=== PATIENT | male | born 1965 | race Caucasian/White ===

== ENCOUNTER 2016-10-31 13:21 | Inpatient (IN) ==
[2016-10-31] MEDS ORDERED: ZOFRAN IV PRN (14:48)
[2016-10-31] MEDS ORDERED: NUBAIN IV PRN (14:48)
[2016-10-31] MEDS: SODIUM CHLORIDE 0.9% INJ SCH (15:32)
[2016-10-31] MEDS: PROTONIX IV SCH (15:33)
[2016-10-31 15:47] LABS: MANUAL DIFF NEEDED? NO
[2016-10-31] MEDS: NS + KCL 20 MEQ 1,000 ML IV SCH (16:10)
[2016-10-31 16:16] LABS: PROTIME 10.5 Seconds (9.2-11.7); PTT 26.9 Seconds (22.0-36.0)
[2016-10-31 16:17] LABS: BASO% 0.4 % (0.0-0.8); EOS# 0.37 X1000 (0.0-0.7); EOS% 3.4 % (0.0-10.0); HEMATOCRIT 41.8 % (42.0-52.0); HEMOGLOBIN 14.2 g/dL (14.0-18.0); IMM GRAN# 0.12 X1000 (0.0-0.04); IMM GRAN% 1.1 % (0.0-0.5); LYMPH# 2.77 X1000 (1.2-3.4); LYMPH% 25.6 % (20.5-51.1); MCH 29.7 PG (27-31); MCV 87.4 FL (81-99); MONO# 0.74 X1000 (0.11-0.59); MONO% 6.8 % (1.7-9.3); MPV 12.3 FL (7.4-10.4); NEUT% 62.7 % (42.2-75.2); PLT 186 X1000 (130-400); RBC 4.78 XMIL (4.7-6.1)
[2016-10-31 16:18] LABS: AGAP 11; ALBUMIN 3.6 g/dL (3.5-5.0); ALKALINE PHOSPHATASE 65 U/L (32-122); AMYLASE 37 U/L (20-200); BUN 24 mg/dL (8-22); CALCIUM 8.5 mg/dL (8.8-10.2); CHLORIDE 102 mmol/L (98-107); COSMO 276; GOT 24 U/L (10-34); GPT 29 U/L (10-44); LIPASE 39 U/L (13-60); POTASSIUM 3.9 mmol/L (3.5-5.1); SODIUM 136 mmol/L (136-145); TCO2 23 mmol/L (25-35); TOTAL BILIRUBIN 0.23 mg/dL (0.20-1.00); TOTAL PROTEIN 7.3 g/dL (6.3-8.3)
--- NOTE | 2016-10-31 16:43 | Diag Imaging Result Doc PS360 ---
EXAM: ABDOMEN FLAT/UPRIGHT - 10/31/2016 HISTORY: abd pain TECHNIQUE: Supine and upright abdomen COMPARISON: 09/27/2015 FINDINGS: There is oral contrast on board associated with the scheduled CT abdomen and pelvis. There is gas visible in mostly nondistended colon and small bowel. There is no substantial gaseous bowel distention identified. There are multiple air-fluid levels on the upright view. There is no there is no obvious free air. IMPRESSION: Nonspecific bowel gas pattern. There are multiple air-fluid levels on the upright view, but there is no substantial gaseous bowel distention identified. Electronically signed by Haile Mazariegos 10/31/2016 4:41 PM
[2016-10-31] MEDS: ZOSYN 3.375 GM/NS 3.375 GM/50 ML IVPB IV SCH ×2 (17:59→22:40)
--- NOTE | 2016-10-31 17:59 | HISTORY AND PHYSICAL ---
CHIEF COMPLAINT: Abdominal pain. HISTORY OF PRESENT ILLNESS: A 51-year-old, white gentleman complaining of pain in the right upper quadrant and right side of the abdomen going on since Sunday. The patient had throbbing pain at times sharp pain, throbbing pain was almost constant. Sharp pain was coming and going. The patient did have mild nausea but no vomiting. The patient had a few loose bowel movements. He denied any blood or mucus in the stool. No dysuria or hematuria. At times, pain was moderate. The patient came to the office for evaluation. The patient was looking sick and I evaluated the patient. On exam patient did have tenderness in the right upper quadrant and I decided to admit the patient for further care. The patient denied any blood or mucus in the stool. The patient did have mild dysuria; no gross hematuria. The patient had history of kidney stone but he denied any renal or ureteric colic. Mild abdominal bloating and distention. No typical chest pain, palpitation, orthopnea or PND. The patient does have chronic cough with scanty sputum production. The patient does smoke. No dysphagia or odynophagia. No runny nose, stuffy nose, sinus drainage. At times, pain in the lower back. No heat or cold intolerance. The patient gained weight. No focal numbness, tingling, weakness. No further history available at this time. ALLERGIES: No known drug allergy. HOME MEDICATION: Protonix, Carafate and Cozaar. PAST MEDICAL HISTORY: Significant for metabolic syndrome, hypertension, gastritis, peripheral neuropathy, osteoarthritis. PERSONAL HISTORY: Single. He does smoke a pack every 2-3 days. Denied alcohol or substance abuse. Patient is on disability. REVIEW OF SYSTEMS: As per HPI. Otherwise unobtainable. FAMILY HISTORY: Significant for father who from a gunshot wound. Mother with complication of DVT. She also had alcoholic cirrhosis of the liver. One of the sisters has kidney disease and diabetes. PHYSICAL EXAMINATION: GENERAL: Middle-aged white gentleman in mild distress. VITAL SIGNS: Noted. SKIN: Normal turgor. No rash or petechiae. HEENT: Head atraumatic, normocephalic. [place] conjunctivae. Anicteric sclerae. Extraocular muscle movement normal. Fundus cannot be penetrated. Good oral hygiene. No tonsillopharyngeal congestion or exudate. Ears and nose benign. NECK: Supple. No JVD, thyromegaly or lymphadenopathy. CHEST: Bilateral good air entry present. Few basal crepitations. No rales. CARDIOVASCULAR: S1 and S2 heard. No gallop or thrill. ABDOMEN: Soft, globular. Bowel sounds present. Tenderness in the right upper quadrant. No guarding or rigidity. EXTREMITIES: No cyanosis, clubbing. No acute DVT. 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 Crepitation both the knee joints. Vague tenderness lumbosacral spine. LABORATORY DATA: WBC count 10.82. The patient does have left shift. Hemoglobin 14.2. Hematocrit 41.8. Platelet count 186,000. PT PTT normal, electrolytes fairly benign. Amylase and lipase were normal. Abdominal x-ray did reveal possibility of nonspecific bowel gas pattern. Multiple air-fluid level. CONSIDERATION: Abdominal pain. My differential includes possible gall bladder disease or cholecystitis. X-ray suggestive of small bowel obstruction. I am going to get CT scan of the abdomen and pelvis for further evaluation. His other problems include gastritis and reflux disease, IDDM, metabolic syndrome, hypertension, peripheral neuropathy, osteoarthritis. PLAN: Admit the patient. IV fluid. Septic workup. Close observation. Urinalysis. Overall plan discussed at length with the patient and he is in agreement. I am going to start patient on antibiotics. If workup negative will stop the antibiotics. Depending on the results, we will get surgical consult. cc: Phan De Leon MD
[2016-10-31] MEDS: DILAUDID IV PRN (21:12)
[2016-11-01] MEDS: ZOSYN 3.375 GM/NS 3.375 GM/50 ML IVPB IV SCH ×4 (00:12→10:51)
[2016-11-01] MEDS: NS + KCL 20 MEQ 1,000 ML IV SCH ×3 (03:38→15:37)
--- NOTE | 2016-11-01 05:26 | EKG Report ---
Test Performed on : 10/31/2016 2:56:25 PM Test Reason : abd pain Blood Pressure : / mmHG Vent. Rate : 075 BPM Atrial Rate : 075 BPM P-R Int : 144 ms QRS Dur : 088 ms QT Int : 386 ms P-R-T Axes : 059 024 047 degrees QTc Int : 431 ms Normal sinus rhythm. Normal ECG No previous ECGs available Confirmed by Donnell Pastrana MD ([id number]) on 11/01/2016 7:18:53 AM
[2016-11-01 06:13] LABS: MANUAL DIFF NEEDED? NO
[2016-11-01 06:19] LABS: BASO% 0.3 % (0.0-0.8); EOS# 0.38 X1000 (0.0-0.7); EOS% 4.1 % (0.0-10.0); HEMATOCRIT 42.5 % (42.0-52.0); HEMOGLOBIN 14.3 g/dL (14.0-18.0); IMM GRAN# 0.13 X1000 (0.0-0.04); IMM GRAN% 1.4 % (0.0-0.5); LYMPH# 2.75 X1000 (1.2-3.4); LYMPH% 29.5 % (20.5-51.1); MCH 29.5 PG (27-31); MCHC 33.6 g/dL (33-37); MCV 87.6 FL (81-99); MONO# 0.54 X1000 (0.11-0.59); MONO% 5.8 % (1.7-9.3); MPV 12.4 FL (7.4-10.4); NEUT% 58.9 % (42.2-75.2); PLT 172 X1000 (130-400); RBC 4.85 XMIL (4.7-6.1)
--- NOTE | 2016-11-01 06:30 | PROGRESS NOTE ---
DATE: 11/01/2016 SUBJECTIVE: Mr. Smith is feeling some better. He was still requiring pain medication. No high-grade fever or chills. Denied any nausea or vomiting. The patient did have 2-3 bowel movements yesterday after having oral contrast. No typical chest pain. Patient admitted with pain in the right upper quadrant. I was concerned about cholecystitis. I was also concerned about clinical jaundice in my office, but his LFTs are normal. CT scan did not reveal any acute cholecystitis or gallstone. It did show fatty liver, shotty nonspecific small mesenteric and periaortic nodes. OBJECTIVE: Vital Signs: Noted. Neck: Supple. No JVD. Lungs: Bilateral good air entry present. Cardiovascular: S1 and S2 heard. Abdomen: Soft, globular. Bowel sounds present. Tenderness much improved in the right upper quadrant. Extremities: No cyanosis, clubbing. No acute DVT. Central Nervous System: Alert, awake, able to move all 4 limbs. ASSESSMENT AND PLAN: I am going to follow his a.m. blood work, official result of the CAT scan. Advance diet if clinical condition permits. I am planning to discharge the patient home soon. Overall plan discussed with the patient, and he is in agreement. Abdominal x-ray revealed nonspecific bowel gas pattern. Otherwise, benign. cc: Phan De Leon MD
[2016-11-01 06:42] LABS: AGAP 13; ALBUMIN 3.3 g/dL (3.5-5.0); ALKALINE PHOSPHATASE 63 U/L (32-122); BUN 18 mg/dL (8-22); CALCIUM 8.4 mg/dL (8.8-10.2); CHLORIDE 104 mmol/L (98-107); COSMO 283; GOT 24 U/L (10-34); GPT 28 U/L (10-44); POTASSIUM 4.6 mmol/L (3.5-5.1); SODIUM 141 mmol/L (136-145); TCO2 24 mmol/L (25-35); TOTAL BILIRUBIN 0.48 mg/dL (0.20-1.00); TOTAL PROTEIN 6.6 g/dL (6.3-8.3)
--- NOTE | 2016-11-01 08:36 | Diag Imaging Result Doc PS360 ---
EXAM: ABDOMEN/PELVIS W/CONTRAST HISTORY: abd pain TECHNIQUE: CT of the abdomen with intravenous and oral contrast and dose reduction (clarity.) COMMENT: There is a 6 mm somewhat dense but not clearly calcified pulmonary nodule in the right lower lobe on image one. The aorta is not dilated. The mesenteric arteries and renal arteries are patent. There is hepatic steatosis. The gallbladder is somewhat distended but there is no definite evidence of stones. The spleen adrenal glands and pancreas are stable in appearance compared to 09/27/2015. The kidneys are also stable in appearance. There is no evidence of significant adenopathy. There is no evidence of bowel obstruction or appendicitis. CT of the pelvis with intravenous and oral contrast: There are no abnormal fluid collections. The urinary bladder is unremarkable. There are a prominent bilateral external iliac nodes which have not changed since 09/27/2015. Otherwise, there is is no evidence of significant adenopathy. The inflammatory changes in the fat and free fluid in the rectovesical pouch which were present previously have resolved. The regional skeleton is stable in appearance. IMPRESSION: Hepatic steatosis. No evidence of acute disease. Electronically signed by Orion Ken 11/01/2016 8:33 AM
[2016-11-01] MEDS: DILAUDID IV PRN ×3 (09:11→18:23)
[2016-11-01 12:15] LABS: URINE MICRO REVIEW NEEDED? NO; URINE SOURCE VOIDED
[2016-11-01 12:19] LABS: BILIRUBIN URINE NEGATIVE (NEGATIVE); BLOOD URINE NEGATIVE (NEGATIVE); COLOR YELLOW; GLUCOSE URINE NEGATIVE (NEGATIVE); LEUKOCYTES URINE NEGATIVE (NEGATIVE); NITRITE URINE NEGATIVE (NEGATIVE); PH URINE 6.5; PROTEIN URINE NEGATIVE (NEGATIVE); SP GRAVITY URINE 1.011; TURBIDITY URINE CLEAR (CLEAR); UROBILINOGEN URINE NORMAL (NORMAL)
[2016-11-01 12:20] LABS: UR EPITHELIAL CELLS <10 /HPF (<10); URINE BACTERIA NEGATIVE /HPF; URINE RBC <10 /HPF (<10); URINE WBC <10 /HPF (<10)
[2016-11-01] MEDS: SODIUM CHLORIDE 0.9% INJ SCH (15:36)
[2016-11-01] MEDS: PROTONIX IV SCH (15:36)
--- NOTE | 2016-11-01 18:20 | PROGRESS NOTE ---
DATE: 11/01/2016 Mr. Smith is still complaining of abdominal pain, requiring pain medication. More pain after eating. The pain is cramping in nature and also after going for bowel movement. No blood or mucus in the stool. No chest pain. CT scan was normal. Vital signs noted. On exam patient still has deep tenderness right upper quadrant. 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 I discontinued his IV antibiotics. I am going to get HIDA scan. Continue rest of the treatment. Close observation. Overall plan discussed with the patient and he is in agreement. cc: Phan De Leon MD
[2016-11-02] MEDS: DILAUDID IV PRN ×2 (03:38→14:41)
--- NOTE | 2016-11-02 06:48 | PROGRESS NOTE ---
DATE: 11/02/2016 SUBJECTIVE: Mr. Smith is doing better. The patient still has at times pain in the right upper quadrant. No high-grade fever or chills. CT scan results reviewed. No nausea or vomiting. I am going to consider a HIDA scan today. The patient had black color stool, most likely due to Pepto-Bismol. No typical chest pain or palpitations. No dysuria or hematuria. OBJECTIVE: Vital Signs: Noted. Patient is afebrile. Neck: Supple. No JVD. Lungs: Bilateral good air entry present. Cardiovascular: S1 and S2 heard. Abdomen: Soft. No distention. Bowel sounds present. Mild tenderness, right upper quadrant. No guarding or rigidity. Extremities: No cyanosis, clubbing. No acute DVT. Central Nervous System: Alert, awake, able to move all 4 limbs. LABORATORY DATA: Done yesterday, noted again. ASSESSMENT AND PLAN: I am going to get a HIDA scan. Recheck labs today. After reviewing HIDA scan, if clinical condition permits, I am planning to discharge patient home today. cc: Phan De Leon MD
[2016-11-02 08:22] LABS: MANUAL DIFF NEEDED? NO
[2016-11-02 08:29] LABS: BASO% 0.6 % (0.0-0.8); EOS# 0.38 X1000 (0.0-0.7); EOS% 3.8 % (0.0-10.0); HEMATOCRIT 41.9 % (42.0-52.0); HEMOGLOBIN 14.3 g/dL (14.0-18.0); IMM GRAN# 0.19 X1000 (0.0-0.04); IMM GRAN% 1.9 % (0.0-0.5); LYMPH# 2.76 X1000 (1.2-3.4); LYMPH% 27.6 % (20.5-51.1); MCH 29.7 PG (27-31); MCHC 34.1 g/dL (33-37); MCV 87.1 FL (81-99); MONO# 0.71 X1000 (0.11-0.59); MONO% 7.1 % (1.7-9.3); MPV 12.1 FL (7.4-10.4); PLT 179 X1000 (130-400); RBC 4.81 XMIL (4.7-6.1)
[2016-11-02 09:12] LABS: AGAP 13; ALBUMIN 3.7 g/dL (3.5-5.0); ALKALINE PHOSPHATASE 64 U/L (32-122); BUN 16 mg/dL (8-22); CALCIUM 8.7 mg/dL (8.8-10.2); CHLORIDE 101 mmol/L (98-107); COSMO 274; GOT 27 U/L (10-34); GPT 30 U/L (10-44); MAGNESIUM 2.1 mg/dL (1.5-2.7); POTASSIUM 4.2 mmol/L (3.5-5.1); SODIUM 137 mmol/L (136-145); TCO2 23 mmol/L (25-35); TOTAL BILIRUBIN 0.34 mg/dL (0.20-1.00); TOTAL PROTEIN 7.6 g/dL (6.3-8.3)
--- NOTE | 2016-11-02 14:38 | Diag Imaging Result Doc PS360 ---
EXAM: HIDA SCAN W/ EJECTION FRACTION - 11/01/2016 HISTORY: abd.pain TECHNIQUE: Exam performed using 4.1 mCi technetium 99m Choletec ministration intravenously. COMPARISON: None. FINDINGS: There is prompt tracer uptake by the liver. The gallbladder is probably visualized, with gallbladder activity first visible less than 15 minutes following tracer ministration. There is prompt appearance of tracer into small bowel. Gallbladder ejection fraction is currently following administration of 8 ounces of liquid ensure by mouth. The ejection fraction is calculated at 12%. IMPRESSION: Prompt visualization of gallbladder. Low gallbladder ejection fraction at 12%. Electronically signed by Haile Mazariegos 11/02/2016 2:36 PM
[2016-11-02] MEDS: SODIUM CHLORIDE 0.9% INJ SCH (14:45)
[2016-11-02] MEDS: PROTONIX IV SCH (14:45)
[2016-11-02 17:09] VITALS: BP 110/75
--- NOTE | 2016-11-02 19:04 | DISCHARGE SUMMARY ---
ADMISSION DATE: 10/31/2016 DISCHARGE DATE: 11/02/2016 FINAL DISCHARGE DIAGNOSES: 1. Right upper quadrant pain. 2. Gallbladder disease. 3. Noninsulin-dependent diabetes mellitus. 4. Osteoarthritis. 5. Morbid obesity. 6. Peripheral neuropathy. 7. Gastritis and reflux disease. HOSPITAL COURSE: Mr. Smith is a 51-year-old, white gentleman admitted with pain in the right upper quadrant and epigastric area, some nausea and diarrhea. The patient was sick looking. I evaluated the patient in the office and admitted for further care. The patient was treated with IV fluids, IV pain medications, symptomatic treatment. I did a CT scan of the abdomen and pelvis which revealed hepatic steatosis. No acute disease. Gallbladder was somewhat distended but there was no definite evidence of stone. The patient still has some tenderness in the right upper quadrant and he was complaining of pain. I did a HIDA scan which did show low ejection fraction. I discussed with surgeon that we are planning to consider him for possible cholecystectomy as an outpatient after surgical evaluation. Clinically patient is doing fairly well. Vital signs were noted. Lungs clear. Heart regular. Abdomen is soft, globular. Bowel sounds present. ID evaluated the patient. The patient is clinically stable to go home. I will see him back in the office next week. I gave him a few pain medicines. I advised him to avoid fatty and fried foods, weight reduction, smoking cessation, continue home medicine. In case of more distress, call us back or go to the emergency room. I did blood work today. Hemoglobin 14.3, hematocrit 41.9, WBC count 9.99, platelet count was 179,000, electrolytes were fairly benign. Urinalysis was negative. Abdominal x-ray results reviewed. Overall ejection fraction on HIDA scan was 12. Overall discharge condition satisfactory. cc: Phan De Leon MD
== END 2016-11-02 18:43 | disposition home or self-care (01) ==
LOC: DIRADM 13:21 → 4N 13:57
PROVIDERS: ADMIT Internal Medicine; ATTEND Internal Medicine